=== PATIENT | female | born 1970 | race Caucasian/White ===

== ENCOUNTER → 2022-06-01 10:45 | Outpatient (BNVA) | payer OTHER, SELFPAY | PROVIDERS: PCP Internal Medicine; Visit Provider Physician Assistant Surgical ==

== ENCOUNTER → 2022-07-12 10:06 | Outpatient (BNVA) | payer OTHER, SELFPAY | PROVIDERS: PCP Internal Medicine; Visit Provider Physician Assistant Surgical | DX: E66.01 Morbid (severe) obesity due to excess calories (principal); Z68.41 Body mass index [BMI] 40.0-44.9, adult | CPT/HCPCS: 99202 ==

== ENCOUNTER 2022-07-19 08:47 | Outpatient (REF) | payer OTHER, SELFPAY ==
--- NOTE | ~2022-07-19 | XR_ITS ---
EXAMINATION: XR CHEST CLINICAL INFORMATION: Morbid obesity does access catheter is COMPARISON: None available. TECHNIQUE: 2 views of the chest were obtained. FINDINGS: No significant abnormality is noted involving the heart, lungs, mediastinum, bony thorax or soft tissues. XR/XR chest 2V IMPRESSION: Unremarkable examination.
[2022-07-19 09:05] LABS: MANUAL DIFF FLAG NO
[2022-07-19 09:39] LABS: Basophils Percent Auto 0.4 % (0-2); Eosinophils Absolute Auto 0.2 X10*3/uL (0.0-0.4); Eosinophils Percent Auto 2.5 % (0-4); Hematocrit 44.4 % (37.0-47.0); Hemoglobin 14.1 g/dl (12.0-16.0); Imm Gran Abs Auto 0.05 X10*3/uL (0.00-0.03); Imm Gran Pct Auto 0.7 % (0.0-0.4); Lymphocytes Absolute Auto 2.1 X10*3/uL (1.2-4.9); Lymphocytes Percent Auto 31.8 % (20-40); Mean Corpuscular HGB Conc 31.8 g/dl (31.0-35.0); Mean Corpuscular Hemoglobin 28.8 pg (27.0-33.0); Mean Corpuscular Volume 90.6 fL (80.0-98.0); Mean Platelet Volume 9.4 fL (9.4-12.3); Monocytes Absolute Auto 0.6 X10*3/uL (0.1-1.2); Monocytes Percent Auto 8.5 % (2-11); Neutrophils Absolute Auto 3.8 x10*3/uL (2.0-8.3); Neutrophils Percent Auto 56.1 % (45-73); Platelet Count 410 X10*3/uL (160-400); Red Cell Distribution Width 12.9 % (11.0-16.0); White Blood Count 6.7 X10*3/uL (4.8-10.8)
[2022-07-19 10:01] LABS: Estimated Average Glucose 120 mg/dL; Hemoglobin A1c % 5.8 %
[2022-07-19 10:29] LABS: Alanine Aminotransferase 34 U/L (0-31); Albumin Level 4.5 g/dL (3.5-5.0); Alkaline Phosphatase 78 U/L (39-117); Anion Gap 13 (12-20); Aspartate Amino Transferase 17 U/L (5-31); Blood Urea Nitrogen 15 mg/dL (9-16); C Reactive Protein 0.67 mg/dL (< or = 0.50); Calcium 10.1 mg/dL (8.4-10.2); Carbon Dioxide 25 mmol/L (22-29); Chloride 106 mmol/L (96-108); Cholesterol 290 mg/dL; Estimated Glomerular Filt Rate > 60; Glucose Random 110 mg/dL (60-115); HDL Cholesterol 53 mg/dL; Iron 80 mcg/dL (30-160); LDL Cholesterol Calculated 196 mg/dl; Percent Iron Saturation 30 % (15-50); Sodium 139 mmol/L (135-145); Total Iron Binding Capacity 267 mcg/dL (228-428); Total Protein 7.3 g/dL (6.5-8.0); Triglycerides 205 mg/dL; Unsaturated Iron Binding 187 ug/dL
[2022-07-19 11:05] LABS: Ferritin 114 ng/mL (10-250); Folate 11.4 ng/mL (> or = 4.0); TSH reflex Free T4 1.35 uIU/mL (0.32-4.0); Vitamin B12 304 pg/mL (200-900)
[2022-07-19 11:07] LABS: Insulin 12 uU/mL (2-29)
[2022-07-20 18:54] LABS: Calcium (PTHI) 10.3 mg/dL (8.6-10.4); PTHI 76 pg/mL (16-77)
[2022-07-23 13:33] LABS: Vitamin B1 8 nmol/L (8-30)
[2022-07-23 22:39] LABS: Zinc 89 mcg/dL (60-130)
[2022-07-27 10:08] LABS: Vitamin A 61 mcg/dL (38-98)
== END 2022-07-19 08:48 | disposition home or self-care (01) ==
LOC: HO.XRAY 08:47
PROVIDERS: PCP Internal Medicine; Visit Provider Physician Assistant Surgical
DX: E66.01 Morbid (severe) obesity due to excess calories (principal)
CPT/HCPCS: 36415; 71046; 80053; 80061; 82306; 82607; 82728; 82746; 83036; 83525; 83540; 83970; 84425; 84443; 84590; 84630; 85025; 86140

== ENCOUNTER → 2022-08-05 08:45 | Outpatient (REF) | payer OTHER, SELFPAY ==
--- NOTE | 2022-08-05 09:00 | ECG_ITS ---
Test Reason : OBESITY Blood Pressure : / mmHG Vent. Rate : 065 BPM Atrial Rate : 065 BPM P-R Int : 146 ms QRS Dur : 064 ms QT Int : 412 ms P-R-T Axes : 060 027 026 degrees QTc Int : 428 ms Normal sinus rhythm Normal ECG No previous ECGs available Referred By: Gian Emmanuel Electronically Signed By:Ghulam Doshi
== END ==
LOC: HO.CARD 08:45
PROVIDERS: PCP Internal Medicine; Visit Provider Physician Assistant Surgical
DX: E66.01 Morbid (severe) obesity due to excess calories (principal)
CPT/HCPCS: 93005

== ENCOUNTER 2022-08-20 | Outpatient (REF) | payer OTHER, SELFPAY ==
[2022-08-24 09:16] LABS: H Pylori Breath Test Negative (Negative)
== END 2022-08-20 00:01 | disposition home or self-care (01) ==
LOC: HO.LNP
PROVIDERS: Visit Provider Physician Assistant Surgical
DX: E66.01 Morbid (severe) obesity due to excess calories (principal)
CPT/HCPCS: 83013

== ENCOUNTER → 2022-08-20 10:39 | Outpatient (BNVA) | payer OTHER, SELFPAY | PROVIDERS: Visit Provider Physician Assistant Surgical | DX: Z11.0 Encounter for screening for intestinal infectious diseases (principal) | CPT/HCPCS: 99211 ==

== ENCOUNTER → 2022-08-23 10:07 | Outpatient (BNVA) | payer OTHER, SELFPAY | PROVIDERS: PCP Internal Medicine; Referring Provider Physician Assistant Surgical; Visit Provider Dietitian, Registered | DX: E66.9 Obesity, unspecified (principal); Z71.3 Dietary counseling and surveillance | CPT/HCPCS: 97802 ==

== ENCOUNTER 2022-11-10 14:47 | Outpatient (AMB) | payer OTHER, SELFPAY ==
--- NOTE | 2022-11-10 14:52 | A.OFFVIS_ITS ---
Intake VS Expanded 11/10/22 14:58 Height 5 ft Weight 217 lb 9.6 oz BMI 42.5 BP 114/56 L Blood Pressure Location Rt brachial Blood Pressure Position Sitting Pulse 84 Pulse Source Pulse Oximeter Temp 96.6 F L Temperature Source Temporal Artery Scan Pulse Oximetry 97 Oxygen Delivery Method Room Air Body Fat 101.2 Body Fat Percentage 46.5 Free Fat Mass 116.4 Muscle Mass 110.4 Visceral Mass 14.0 Water Mass 82.8 BMR 1,643 Intake Visit Reasons: (OV) F/U SWL Project Facilitator Name: office cmi Allergies No Known Allergies Allergy (Verified 11/10/22 14:57) Medication List - Last Reconciled 11/10/22 by PETER Btaeman acetaminophen ER (Tylenol Arthritis Pain) 650 mg PO Q12H cholecalciferol (vitamin D3) 125 mcg PO DAILY 90 days cyanocobalamin (vitamin B-12) 250 mcg PO DAILY 90 days diphenhydramine HCl (Benadryl) 25 mg PO BEDTIME PRN HPI HPI Comments History of Present Illness Details The patient is a pleasant 52 year old female who returns to the clinic for pre-operative surgical weight loss management. They were last seen in the office on 07/12/22, recorded weight at that time was 215 pounds, with a BMI of 42. Today's weight is 217.6 pounds and BMI is 42.5. There has been a weight gain of 2.6 pounds since initiating the surgical weight loss program on 07/12/22. Pre op work up completed as follows: SW classes:? appts: NS ? ? RD appts: needs f/u Labs: 07/19/22-Low D, B12:304 H. pylori: 08/20/22-neg CXR: 07/19/22-nad EK08/05/22-normal ABD U/S: not yet done UGI: not yet done The patient reports she has had trouble with the shakes and stopped doing them. She has not communicated with me in 4 months. She has gained weight, lost her job and is going through a divorce from her . She is also considering moving to [place] to live with her sons. She is going to take a break from the program Current meal plan includes: 3 Pure Protein shakes ([employer], [employer], [employer] [facility]), (1/2 scoop in 8 oz low fat unsweetened almond milk each) First shake at 8am-10am Second shake at 11am-1pm 1 protein bar ([employer] bars at [employer], [employer], or [employer]) at 2pm-4pm. Dinner at 5pm (8 forks of protein and 8 forks of salad/vegetables). Another shake with 1/2 scoop in 8 oz unsweetened almond milk at 7pm-9pm. Drinking [] oz of water Current exercise plan includes: [] PFSH Surgical History H/O tubal ligation Hx of section Family History Mother HIV (human immunodeficiency virus infection) Father Liver problem Son No problems noted. Son No problems noted. Daughter No problems noted. Daughter No problems noted. Social History Alcohol intake: current Alcohol intake frequency: a few times a month Patient Tobacco Use Status: Never used Tobacco Physical Exam Const General: healthy appearing and no acute distress Resp Effort & Inspection: normal respiratory effort Auscultation: clear to auscultation bilaterally Cardio Rate: regular rate Rhythm: regular rhythm GI Auscultation: normal bowel sounds Extrem General: Yes normal to inspection Assessment & Plan Assessment & Plan (1) Morbid obesity: Code(s): E66.01 - Morbid (severe) obesity due to excess calories Plan: pt is going to take a break from the program to deal with her divorce Coding Level of Care Code Est Pt Level 3 (62531) Diagnoses Morbid obesity E66.01
[2022-11-10 14:58] VITALS: BP 114/56; PULSE 84; TEMP 35.9; O2SAT 97; BMI 42.5
== END 2022-11-10 15:28 | disposition home or self-care (01) ==
PROVIDERS: PCP Internal Medicine; Visit Provider Physician Assistant Surgical
DX: E66.01 Morbid (severe) obesity due to excess calories (principal); Z68.41 Body mass index [BMI] 40.0-44.9, adult
CPT/HCPCS: 99213

== ENCOUNTER → 2022-11-10 14:47 | Outpatient (BNVA) | payer OTHER, SELFPAY | PROVIDERS: PCP Internal Medicine; Visit Provider Physician Assistant Surgical | DX: E66.01 Morbid (severe) obesity due to excess calories (principal); Z68.41 Body mass index [BMI] 40.0-44.9, adult | CPT/HCPCS: 99212 ==